=== PATIENT | female | born 1950 | race Hispanic/Latino ===

== ENCOUNTER 2022-03-20 15:10 | Inpatient (IN) | payer MEDICARE ==
[~2022-03-20] VITALS: Ht 157.5 cm; Wt 63.5 kg
[2022-03-20] MEDS ORDERED: CLONIDINE HCL 0.2 MG TAB PO ONE (15:30)
[2022-03-20] MEDS ORDERED: CLONIDINE HCL 0.1 MG TAB ONE (15:46)
[2022-03-20] MEDS ORDERED: ACETAMINOPHEN 325 MG TAB PO ONE (16:30)
[2022-03-20] MEDS ORDERED: NITROGLYCERIN 2% OINT 1 GM PKT TOP ONE (16:30)
[2022-03-20] MEDS ORDERED: FUROSEMIDE INJ 10 MG/ML 4 ML VIAL IV ONE (16:30)
[2022-03-20] MEDS ORDERED: FUROSEMIDE INJ 10 MG/ML 4 ML VIAL ONE (16:42)
[2022-03-20] MEDS ORDERED: ACETAMINOPHEN 325 MG TAB ONE (16:42)
[2022-03-20] MEDS ORDERED: DEXTROSE 50% SYRINGE 50 ML IV PRN (17:00)
[2022-03-20] MEDS: FAMOTIDINE 20 MG TAB PO SCH (17:00)
[2022-03-20] MEDS ORDERED: ENOXAPARIN SODIUM INJ 100 MG/ML SYR SC ONE ×2 (17:00→17:17)
[2022-03-20] MEDS ORDERED: SODIUM CHLORIDE FLUSH 10 ML SYR INJ PRN (17:00)
[2022-03-20] MEDS ORDERED: INSULIN REGULAR, HUMAN 100 UNIT/1 ML IV ONE (17:00)
[2022-03-20] MEDS: ASPIRIN 325 MG TAB PO SCH (17:06)
[2022-03-20] MEDS ORDERED: ASPIRIN 81 MG CHEW TAB ONE (18:42)
[2022-03-20] MEDS: INSULIN REGULAR, HUMAN 100 UNIT/1 ML SQ SCH (21:00)
[2022-03-20 21:43] VITALS: BP 154/55
[2022-03-20 21:45] VITALS: BP 154/55
[2022-03-20] MEDS: NITROGLYCERIN 2% OINT 1 GM PKT TOP SCH ×2 (21:45→23:08)
[2022-03-21] VITALS (7 sets, daily range): BP systolic 108–217; BP diastolic 58–93
[2022-03-21] MEDS: FAMOTIDINE 20 MG TAB PO SCH ×2 (05:18→17:07)
[2022-03-21] MEDS: NITROGLYCERIN 2% OINT 1 GM PKT TOP SCH ×3 (05:19→17:07)
[2022-03-21] MEDS ORDERED: CLONIDINE HCL 0.1 MG TAB PO ONE (06:00)
[2022-03-21] MEDS: ACETAMINOPHEN 325 MG TAB PO PRN ×2 (06:02→21:31)
[2022-03-21] MEDS: CLONIDINE HCL 0.1 MG TAB PO PRN ×2 (06:02→21:15)
[2022-03-21 06:45] LABS: BASOPHILS % 0.4 % (0.0-1.0); EOSINOPHILS # (AUTO) 0.1 (0.0-0.4); EOSINOPHILS % 1.5 % (0.0-6.0); HEMATOCRIT 26.1 % (34.2-44.1); HEMOGLOBIN 8.5 g/dL (12.0-16.0); LYMPHOCYTES # (AUTO) 0.5 (1.0-3.2); MEAN CORPUSCULAR HEMOGLOBIN 30.5 pg (28-32); MEAN CORPUSCULAR HGB CONC 32.6 g/dL (31-35); MEAN CORPUSCULAR VOLUME 93.5 fL (81-99); MONOCYTES # (AUTO) 0.4 (0.2-0.8); MONOCYTES % 6.9 % (4.4-11.3); NEUTROPHILS # (AUTO) 4.2 (2.1-6.9); NEUTROPHILS % 80.6 % (38.7-80.0); RED BLOOD COUNT 2.79 x10e6/uL (3.6-5.1); RED CELL DISTRIBUTION WIDTH 13.1 % (11.7-14.4)
[2022-03-21 06:59] LABS: PLATELET COUNT 95 x10e3/uL (140-360)
[2022-03-21 07:17] LABS: ANION GAP 15.9 mmol/L (8-16); CHOL/HDL RATIO 5.3 (3.0-3.6); CREATININE, SERUM 3.04 mg/dL (0.57-1.11); PHOSPHORUS 4.1 MG/DL (2.3-4.7); POTASSIUM 4.9 mmol/L (3.5-5.1)
[2022-03-21 07:27] LABS: CREATINE KINASE MB 1.9 ng/mL (0-5.0)
[2022-03-21] MEDS: INSULIN REGULAR, HUMAN 100 UNIT/1 ML SQ SCH ×5 (07:30→21:45)
[2022-03-21] MEDS: ASPIRIN 325 MG TAB PO SCH (09:57)
[2022-03-21] MEDS ORDERED: FUROSEMIDE INJ 10 MG/ML 4 ML VIAL IV ONE (11:30)
[2022-03-21] MEDS: GUAIFENESIN 200 MG/10 ML UDC PO PRN ×2 (14:00→21:31)
[2022-03-21 14:38] LABS: CREATINE KINASE MB 2.2 ng/mL (0-5.0)
[2022-03-21] MEDS: HYDRALAZINE HCL 25 MG TAB PO SCH ×2 (15:50→21:16)
[2022-03-21] MEDS: ATORVASTATIN 20 MG TAB PO SCH (21:16)
[2022-03-22] VITALS (7 sets, daily range): BP systolic 152–215; BP diastolic 54–88
[2022-03-22] MEDS: FAMOTIDINE 20 MG TAB PO SCH ×2 (05:10→17:21)
[2022-03-22] MEDS: GUAIFENESIN 200 MG/10 ML UDC PO PRN ×3 (05:11→21:30)
[2022-03-22] MEDS: NITROGLYCERIN 2% OINT 1 GM PKT TOP SCH ×4 (05:11→20:10)
[2022-03-22] MEDS: CLONIDINE HCL 0.1 MG TAB PO PRN (05:11)
[2022-03-22 05:42] LABS: BASOPHILS % 0.2 % (0.0-1.0); EOSINOPHILS % 0.9 % (0.0-6.0); HEMATOCRIT 28.2 % (34.2-44.1); HEMOGLOBIN 9.1 g/dL (12.0-16.0); LYMPHOCYTES # (AUTO) 0.7 (1.0-3.2); LYMPHOCYTES % 15.3 % (18.0-39.1); MEAN CORPUSCULAR HEMOGLOBIN 30.2 pg (28-32); MEAN CORPUSCULAR HGB CONC 32.3 g/dL (31-35); MEAN CORPUSCULAR VOLUME 93.7 fL (81-99); MONOCYTES # (AUTO) 0.5 (0.2-0.8); MONOCYTES % 10.5 % (4.4-11.3); NEUTROPHILS # (AUTO) 3.3 (2.1-6.9); NEUTROPHILS % 72.7 % (38.7-80.0); PLATELET COUNT 101 x10e3/uL (140-360); RED BLOOD COUNT 3.01 x10e6/uL (3.6-5.1); RED CELL DISTRIBUTION WIDTH 13.2 % (11.7-14.4)
[2022-03-22 06:19] LABS: ALBUMIN 3.2 g/dL (3.5-5.0); ANION GAP 18.8 mmol/L (8-16); CALCIUM 9.3 mg/dL (8.4-10.2); CREATININE, SERUM 3.37 mg/dL (0.57-1.11); MAGNESIUM 1.8 MG/DL (1.3-2.1); POTASSIUM 4.8 mmol/L (3.5-5.1)
[2022-03-22] MEDS: INSULIN REGULAR, HUMAN 100 UNIT/1 ML SQ SCH ×4 (08:17→20:11)
[2022-03-22] MEDS: ASPIRIN 325 MG TAB PO SCH (08:49)
[2022-03-22] MEDS: METOPROLOL SUCCINATE 50 MG TAB XL PO SCH (08:49)
[2022-03-22] MEDS: HYDRALAZINE HCL 25 MG TAB PO SCH ×3 (08:49→20:10)
[2022-03-22] MEDS: ACETAMINOPHEN 325 MG TAB PO PRN (08:54)
[2022-03-22] MEDS: SODIUM BICARBONATE 650 MG TAB PO SCH ×2 (12:27→17:21)
[2022-03-22] MEDS ORDERED: SODIUM CHLORIDE 0.9% 250ML 250 ML ONE (12:43)
[2022-03-22] MEDS: FUROSEMIDE INJ 10 MG/ML 4 ML VIAL IV SCH ×2 (15:28→20:12)
[2022-03-22 18:28] LABS: CLARITY,URINE SL CLOUDY (CLEAR); COLOR,URINE YELLOW (YELLOW); KETONES,URINE NEGATIVE (NEGATIVE); LEUKOCYTE ESTERASE ,URINE NEGATIVE (NEGATIVE); NITRITE,URINE NEGATIVE (NEGATIVE); PROTEIN,URINE DIPSTICK >=300 (NEGATIVE); URINE UROBILINOGEN 0.2 mg/dL (0.2 - 1)
[2022-03-22 18:43] LABS: BACTERIA,URINE MODERATE /HPF; EPITHELIAL CELLS,URINE FEW /LPF; RBC,URINE 0-5 /HPF (0-5); WBC,URINE (MAN) 0-5 /HPF (0-5)
[2022-03-22 18:56] LABS: CREATININE,URINE RANDOM 78.22 mg/dL (47-110)
[2022-03-22 18:58] LABS: TOTAL PROTEIN, URINE 243.2 mg/dL (1-14)
[2022-03-22] MEDS: ATORVASTATIN 20 MG TAB PO SCH (20:10)
[2022-03-23] VITALS (7 sets, daily range): BP systolic 110–181; BP diastolic 50–64
[2022-03-23] MEDS: NITROGLYCERIN 2% OINT 1 GM PKT TOP SCH ×3 (00:18→11:52)
[2022-03-23] MEDS: CLONIDINE HCL 0.1 MG TAB PO PRN ×3 (00:18→20:44)
[2022-03-23] MEDS: FAMOTIDINE 20 MG TAB PO SCH ×2 (05:02→16:42)
[2022-03-23] MEDS: GUAIFENESIN 200 MG/10 ML UDC PO PRN ×2 (05:03→11:15)
[2022-03-23] MEDS: FUROSEMIDE INJ 10 MG/ML 4 ML VIAL IV SCH ×2 (05:08→13:56)
[2022-03-23 06:48] LABS: ALBUMIN/GLOBULIN RATIO 1.2 (0.8-2.0); ANION GAP 19.5 mmol/L (8-16); CALCIUM 8.8 mg/dL (8.4-10.2); CREATININE, SERUM 4.34 mg/dL (0.57-1.11); POTASSIUM 4.5 mmol/L (3.5-5.1)
[2022-03-23] MEDS: INSULIN REGULAR, HUMAN 100 UNIT/1 ML SQ SCH ×4 (08:20→21:25)
[2022-03-23] MEDS: ASPIRIN 325 MG TAB PO SCH (08:34)
[2022-03-23] MEDS: SODIUM BICARBONATE 650 MG TAB PO SCH ×2 (08:34→16:42)
[2022-03-23] MEDS: HYDRALAZINE HCL 25 MG TAB PO SCH ×3 (08:35→20:43)
[2022-03-23] MEDS: METOPROLOL SUCCINATE 50 MG TAB XL PO SCH (08:36)
[2022-03-23] MEDS: ATORVASTATIN 20 MG TAB PO SCH (20:43)
[2022-03-24] VITALS (7 sets, daily range): BP systolic 124–189; BP diastolic 53–83
[2022-03-24] MEDS: CLONIDINE HCL 0.1 MG TAB PO PRN ×2 (00:07→06:12)
[2022-03-24 05:47] LABS: BASOPHILS % 0.3 % (0.0-1.0); EOSINOPHILS # (AUTO) 0.1 (0.0-0.4); EOSINOPHILS % 2.8 % (0.0-6.0); HEMATOCRIT 25.7 % (34.2-44.1); HEMOGLOBIN 8.4 g/dL (12.0-16.0); LYMPHOCYTES # (AUTO) 0.9 (1.0-3.2); LYMPHOCYTES % 28.9 % (18.0-39.1); MEAN CORPUSCULAR HEMOGLOBIN 30.3 pg (28-32); MEAN CORPUSCULAR HGB CONC 32.7 g/dL (31-35); MEAN CORPUSCULAR VOLUME 92.8 fL (81-99); MONOCYTES # (AUTO) 0.3 (0.2-0.8); MONOCYTES % 10.2 % (4.4-11.3); NEUTROPHILS # (AUTO) 1.9 (2.1-6.9); NEUTROPHILS % 57.5 % (38.7-80.0); PLATELET COUNT 93 x10e3/uL (140-360); RED BLOOD COUNT 2.77 x10e6/uL (3.6-5.1); RED CELL DISTRIBUTION WIDTH 12.8 % (11.7-14.4)
[2022-03-24 05:54] LABS: ANION GAP 21.5 mmol/L (8-16); CALCIUM 8.7 mg/dL (8.4-10.2); CREATININE, SERUM 4.48 mg/dL (0.57-1.11); POTASSIUM 4.5 mmol/L (3.5-5.1)
[2022-03-24] MEDS: GUAIFENESIN 200 MG/10 ML UDC PO PRN ×2 (06:12→17:17)
[2022-03-24] MEDS: FAMOTIDINE 20 MG TAB PO SCH ×2 (06:12→17:10)
[2022-03-24] MEDS: INSULIN REGULAR, HUMAN 100 UNIT/1 ML SQ SCH ×4 (07:54→20:48)
[2022-03-24] MEDS ORDERED: FUROSEMIDE INJ 10 MG/ML 4 ML VIAL IV SCH (09:00)
[2022-03-24] MEDS: SODIUM BICARBONATE 650 MG TAB PO SCH ×2 (09:08→17:09)
[2022-03-24] MEDS: ASPIRIN 325 MG TAB PO SCH (09:09)
[2022-03-24] MEDS: HYDRALAZINE HCL 25 MG TAB PO SCH ×3 (09:11→20:48)
[2022-03-24] MEDS: METOPROLOL SUCCINATE 50 MG TAB XL PO SCH (09:12)
[2022-03-24] MEDS: ATORVASTATIN 20 MG TAB PO SCH (20:47)
[2022-03-25] MEDS: GUAIFENESIN 200 MG/10 ML UDC PO PRN ×2 (00:24→04:31)
[2022-03-25] MEDS: ACETAMINOPHEN 325 MG TAB PO PRN (00:24)
[2022-03-25] MEDS: CLONIDINE HCL 0.1 MG TAB PO PRN ×2 (00:24→04:31)
[2022-03-25 01:14] VITALS: BP 171/51
[2022-03-25] MEDS: FAMOTIDINE 20 MG TAB PO SCH (04:30)
[2022-03-25 05:43] LABS: BASOPHILS % 0.2 % (0.0-1.0); EOSINOPHILS # (AUTO) 0.1 (0.0-0.4); EOSINOPHILS % 2.2 % (0.0-6.0); HEMOGLOBIN 8.4 g/dL (12.0-16.0); LYMPHOCYTES # (AUTO) 1.3 (1.0-3.2); LYMPHOCYTES % 30.4 % (18.0-39.1); MEAN CORPUSCULAR HEMOGLOBIN 29.5 pg (28-32); MEAN CORPUSCULAR HGB CONC 32.3 g/dL (31-35); MEAN CORPUSCULAR VOLUME 91.2 fL (81-99); MONOCYTES # (AUTO) 0.3 (0.2-0.8); MONOCYTES % 7.8 % (4.4-11.3); NEUTROPHILS # (AUTO) 2.4 (2.1-6.9); NEUTROPHILS % 59.2 % (38.7-80.0); PLATELET COUNT 94 x10e3/uL (140-360); RED BLOOD COUNT 2.85 x10e6/uL (3.6-5.1); RED CELL DISTRIBUTION WIDTH 12.7 % (11.7-14.4)
[2022-03-25 05:44] VITALS: BP 182/50
[2022-03-25 05:55] LABS: ALBUMIN 2.8 g/dL (3.5-5.0); ALBUMIN/GLOBULIN RATIO 0.9 (0.8-2.0); ANION GAP 20.2 mmol/L (8-16); CALCIUM 8.4 mg/dL (8.4-10.2); CREATININE, SERUM 4.27 mg/dL (0.57-1.11); POTASSIUM 4.2 mmol/L (3.5-5.1)
[2022-03-25] MEDS: INSULIN REGULAR, HUMAN 100 UNIT/1 ML SQ SCH ×2 (07:30→11:30)
[2022-03-25 08:02] VITALS: BP 176/57
[2022-03-25 08:45] VITALS: BP 176/57
[2022-03-25] MEDS: ASPIRIN 325 MG TAB PO SCH (08:56)
[2022-03-25] MEDS: METOPROLOL SUCCINATE 50 MG TAB XL PO SCH (08:56)
[2022-03-25] MEDS: HYDRALAZINE HCL 25 MG TAB PO SCH (08:56)
[2022-03-25] MEDS: SODIUM BICARBONATE 650 MG TAB PO SCH (08:57)
[2022-03-25] MEDS ORDERED: FUROSEMIDE 40 MG TAB PO SCH (09:00)
[2022-03-25] MEDS ORDERED: FUROSEMIDE40 MG PO (10:56)
[2022-03-25] MEDS ORDERED: HUMULIN R100 UNIT/2 SQ (10:56)
[2022-03-25] MEDS ORDERED: SODIUM BICARBO650 MG PO (10:56)
[2022-03-25] MEDS ORDERED: LIPITOR20 MG PO (10:56)
[2022-03-25] MEDS ORDERED: CLONIDINE HCL0.1 MG PO (10:56)
[2022-03-25] MEDS ORDERED: HYDRALAZINE HCL25 MG PO (10:56)
[2022-03-25] MEDS ORDERED: CEFUROXIME250 MG PO (10:56)
[2022-03-25] MEDS ORDERED: ASPIRIN325 MG PO (10:56)
[2022-03-25] MEDS ORDERED: GUAIFENESI100 MG/5 M PO (10:56)
[2022-03-25] MEDS ORDERED: ACETAMINOPHEN325 M1 PO (10:56)
[2022-03-25] MEDS ORDERED: TOPROL XL50 MG PO (10:56)
[2022-03-25] MEDS ORDERED: CATAPRES-TTS 11 EACH TD (11:04)
[2022-03-25 11:42] VITALS: BP 136/53
== END 2022-03-25 12:40 | disposition home or self-care (01) | DRG 280 ==
LOC: FSED 15:18 → ERHOLD 16:58 → MED/SURG2 19:52
PROVIDERS: ADMIT Internal Medicine; ATTEND Internal Medicine
DX: I13.0 Hypertensive heart and chronic kidney disease with heart failure and stage 1 through stage 4 chronic kidney disease, or unspecified chronic kidney disease (principal); I50.31 Acute diastolic (congestive) heart failure; I21.A1 Myocardial infarction type 2; J18.9 Pneumonia, unspecified organism; I16.1 Hypertensive emergency; N17.9 Acute kidney failure, unspecified; N18.4 Chronic kidney disease, stage 4 (severe); J81.1 Chronic pulmonary edema; E87.20 Acidosis, unspecified; E11.22 Type 2 diabetes mellitus with diabetic chronic kidney disease; I08.1 Rheumatic disorders of both mitral and tricuspid valves; E78.5 Hyperlipidemia, unspecified; I25.10 Atherosclerotic heart disease of native coronary artery without angina pectoris; E11.65 Type 2 diabetes mellitus with hyperglycemia; I45.10 Unspecified right bundle-branch block; J06.9 Acute upper respiratory infection, unspecified; Z95.1 Presence of aortocoronary bypass graft; Z95.5 Presence of coronary angioplasty implant and graft; Z79.82 Long term (current) use of aspirin; Z79.899 Other long term (current) drug therapy; Z82.49 Family history of ischemic heart disease and other diseases of the circulatory system; Z79.01 Long term (current) use of anticoagulants; Z79.84 Long term (current) use of oral hypoglycemic drugs; Z79.4 Long term (current) use of insulin
CPT/HCPCS: 0223U; 36415; 71045; 71046; 76770; 80048; 80053; 80061; 81001; 82550; 82553; 82570; 82575; 82948; 83735; 84100; 84156; 84484; 85025; 93005; 93306; 99284; J0456; J0696; J1650; J1940; J7050

== ENCOUNTER 2022-07-04 11:06 | Emergency (ER) | payer MEDICARE, OTHER ==
[~2022-07-04] VITALS: Ht 152.4 cm; Wt 59.0 kg
[~2022-07-04 11:06] MED LIST: ACETAMINOPHEN325 M1 PO; ASPIRIN325 MG PO; CATAPRES-TTS 11 EACH TD; CEFUROXIME250 MG PO; CLONIDINE HCL0.1 MG PO; FUROSEMIDE40 MG PO; GUAIFENESI100 MG/5 M PO; HUMULIN R100 UNIT/2 SQ; HYDRALAZINE HCL25 MG PO; LIPITOR20 MG PO; SODIUM BICARBO650 MG PO; TOPROL XL50 MG PO
[2022-07-04] MEDS ORDERED: CLONIDINE HCL 0.2 MG TAB PO ONE (12:00)
[2022-07-04] MEDS ORDERED: HYDRALAZINE HCL 20 MG/ML VIAL IV ONE (12:00)
[2022-07-04] MEDS ORDERED: HYDRALAZINE HCL 20 MG/ML VIAL ONE (12:33)
[2022-07-04] MEDS ORDERED: CLONIDINE HCL 0.1 MG TAB ONE (12:33)
[2022-07-04] MEDS ORDERED: CLONIDINE HCL 0.1 MG TAB PO ONE (12:45)
[2022-07-04] MEDS ORDERED: AMLODIPINE BESYL5 MG PO (13:17)
[2022-07-04] MEDS ORDERED: GABAPENTIN300 MG PO (13:17)
== END 2022-07-04 13:29 | disposition home or self-care (01) ==
LOC: FSED 11:22
DX: I16.0 Hypertensive urgency (principal); N17.9 Acute kidney failure, unspecified; E11.40 Type 2 diabetes mellitus with diabetic neuropathy, unspecified; E11.65 Type 2 diabetes mellitus with hyperglycemia; E78.5 Hyperlipidemia, unspecified; R94.31 Abnormal electrocardiogram [ECG] [EKG]; Z95.1 Presence of aortocoronary bypass graft
CPT/HCPCS: 80053; 82553; 84484; 85025; 93005; 99284; J0360

== ENCOUNTER 2024-03-28 15:57 | Emergency (ER) | payer MEDICARE ==
[~2024-03-28 15:57] MED LIST changes: +ALBUTEROL2.5 MG/3 M IH; +ALTOPREV40 MG PO; +AMLODIPINE BESYL5 MG PO; +ASPIRIN81 MG PO; +CLOPIDOGREL75 MG PO; +GABAPENTIN300 MG PO; +GLIPIZIDE5 MG PO; +HYDRALAZINE HCL50 MG PO; +LASIX40 MG PO; +MELATONIN3 MG PO; +METOPROLOL SUCC50 MG PO; +NIFEDIPINE ER30 M1 PO; +PRECOSE50 MG PO; +ZESTRIL40 MG PO
[2024-03-28 16:03] VITALS: PULSE 83; RESP 16; TEMP 97.9; O2SAT 98
== END 2024-03-28 18:07 | disposition other institution (70) ==
LOC: FSED 16:02
DX: M79.602 Pain in left arm (principal); R20.0 Anesthesia of skin; L03.114 Cellulitis of left upper limb; I12.9 Hypertensive chronic kidney disease with stage 1 through stage 4 chronic kidney disease, or unspecified chronic kidney disease; E11.22 Type 2 diabetes mellitus with diabetic chronic kidney disease; E11.65 Type 2 diabetes mellitus with hyperglycemia; N18.9 Chronic kidney disease, unspecified; Z99.2 Dependence on renal dialysis; I50.9 Heart failure, unspecified; E78.5 Hyperlipidemia, unspecified; M81.0 Age-related osteoporosis without current pathological fracture; I25.2 Old myocardial infarction; Z95.1 Presence of aortocoronary bypass graft
CPT/HCPCS: 99283; J0696

== ENCOUNTER 2024-05-16 10:22 | Emergency (ER) | payer MEDICARE ==
[2024-05-16 10:25] VITALS: PULSE 71; RESP 16; TEMP 98; O2SAT 97
[2024-05-16] MEDS ORDERED: DOXYCYCLINE HY100 MG PO (10:46)
[2024-05-16] MEDS ORDERED: PROBIOTIC & AC1 EACH PO (10:46)
== END 2024-05-16 11:15 | disposition home or self-care (01) ==
LOC: FSED 10:26
DX: L03.012 Cellulitis of left finger (principal); I12.9 Hypertensive chronic kidney disease with stage 1 through stage 4 chronic kidney disease, or unspecified chronic kidney disease; E11.22 Type 2 diabetes mellitus with diabetic chronic kidney disease; N18.9 Chronic kidney disease, unspecified; I50.9 Heart failure, unspecified; E78.5 Hyperlipidemia, unspecified; I25.2 Old myocardial infarction; Z95.1 Presence of aortocoronary bypass graft
CPT/HCPCS: 99284

== ENCOUNTER 2024-05-20 11:35 | Observation (INO) | payer MEDICARE, OTHER ==
[~2024-05-20] VITALS: Ht 157.5 cm; Wt 46.3 kg
[~2024-05-20 11:35] MED LIST changes: +DOXYCYCLINE HY100 MG PO; +PROBIOTIC & AC1 EACH PO
[2024-05-20 11:40] VITALS: TEMP 98.3
[2024-05-20] MEDS: ALBUTEROL SULF 0.083% NEB SOLN 3 ML NEB NEB STA (13:34)
[2024-05-20 15:22] LABS: BASOPHILS % 0.5 % (0.0-1.0); EOSINOPHILS # (AUTO) 0.1 (0.0-0.4); EOSINOPHILS % 1.4 % (0.0-6.0); HEMATOCRIT 25.8 % (34.2-44.1); HEMOGLOBIN 8.9 g/dL (12.0-16.0); LYMPHOCYTES # (AUTO) 1.7 (1.0-3.2); LYMPHOCYTES % 39.6 % (18.0-39.1); MEAN CORPUSCULAR HGB CONC 34.5 g/dL (31-35); MEAN CORPUSCULAR VOLUME 95.6 fL (81-99); MONOCYTES # (AUTO) 0.5 (0.2-0.8); MONOCYTES % 10.6 % (4.4-11.3); NEUTROPHILS # (AUTO) 2.1 (2.1-6.9); NEUTROPHILS % 47.7 % (38.7-80.0); PLATELET COUNT 120 x10e3/uL (140-360); RED CELL DISTRIBUTION WIDTH 12.8 % (11.7-14.4); WHITE BLOOD COUNT 4.34 x10e3/uL (4.8-10.8)
[2024-05-20] MEDS ORDERED: SODIUM CHLORIDE 0.9% 1000ML 2,000 ML IV PRN (16:00)
[2024-05-20 19:55] VITALS: PULSE 93; RESP 20
[2024-05-20] MEDS ORDERED: ONDANSETRON HCL INJ 2MG/ML 2ML 2 MG/ML VIAL ONE (20:07)
[2024-05-20] MEDS ORDERED: ONDANSETRON HCL INJ 2MG/ML 2ML 2 MG/ML VIAL IV PRN (20:30)
[2024-05-20] MEDS: Morphine 2mg Syringe 2 MG/ML SYR IV PRN (20:31)
[2024-05-20] MEDS: ONDANSETRON HCL INJ 2MG/ML 2ML 2 MG/ML VIAL IV STA (20:33)
[2024-05-20 21:25] VITALS: BP 149/62; PULSE 98; RESP 18; TEMP 97.9; O2SAT 98
[2024-05-20 21:33] VITALS: BP 149/62; PULSE 98; RESP 18; TEMP 97.9; O2SAT 98
[2024-05-20] MEDS ORDERED: INSULIN LI100 UNIT/2 SQ (21:44)
[2024-05-20] MEDS ORDERED: VELPHORO500 MG PO (21:44)
[2024-05-20] MEDS ORDERED: LISINOPRIL40 MG PO (21:44)
[2024-05-20] MEDS ORDERED: BASAGLAR K100 UNIT/1 SC (21:44)
[2024-05-20] MEDS ORDERED: NIFEDIPINE ER90 M1 PO (21:44)
[2024-05-20] MEDS ORDERED: LOVASTATIN40 MG PO (21:44)
[2024-05-20] MEDS ORDERED: CEPHALEXIN500 MG PO (21:44)
[2024-05-20] MEDS ORDERED: DOXYCYCLINE HY100 MG PO (21:44)
[2024-05-20] MEDS ORDERED: ACARBOSE50 MG PO (21:44)
[2024-05-20 23:57] VITALS: BP 122/64; PULSE 94; RESP 18; TEMP 98.7; O2SAT 100
[2024-05-21] VITALS (7 sets, daily range): BP systolic 114–161; BP diastolic 50–84; PULSE 63–100; RESP 14–19; TEMP 97.3–98; O2SAT 98–100
[2024-05-21 05:40] LABS: BASOPHILS % 0.5 % (0.0-1.0); EOSINOPHILS # (AUTO) 0.1 (0.0-0.4); EOSINOPHILS % 1.3 % (0.0-6.0); HEMATOCRIT 26.6 % (34.2-44.1); HEMOGLOBIN 8.9 g/dL (12.0-16.0); LYMPHOCYTES # (AUTO) 1.2 (1.0-3.2); LYMPHOCYTES % 31.5 % (18.0-39.1); MEAN CORPUSCULAR HEMOGLOBIN 33.1 pg (28-32); MEAN CORPUSCULAR HGB CONC 33.5 g/dL (31-35); MEAN CORPUSCULAR VOLUME 98.9 fL (81-99); MONOCYTES # (AUTO) 0.4 (0.2-0.8); MONOCYTES % 10.7 % (4.4-11.3); NEUTROPHILS # (AUTO) 2.2 (2.1-6.9); NEUTROPHILS % 55.7 % (38.7-80.0); PLATELET COUNT 118 x10e3/uL (140-360); RED BLOOD COUNT 2.69 x10e6/uL (3.6-5.1); RED CELL DISTRIBUTION WIDTH 12.8 % (11.7-14.4); WHITE BLOOD COUNT 3.91 x10e3/uL (4.8-10.8)
[2024-05-21 06:04] LABS: ANION GAP 17.1 mmol/L (8-16); CALCIUM 9.3 mg/dL (8.4-10.2); CREATININE, SERUM 3.47 mg/dL (0.57-1.11); POTASSIUM 4.1 mmol/L (3.5-5.1)
[2024-05-21] MEDS ORDERED: ALBUTEROL SULF 0.083% NEB SOLN 3 ML NEB NEB PRN (07:15)
[2024-05-21] MEDS: GLIPIZIDE 5 MG TAB PO SCH (07:30)
[2024-05-21] MEDS: HYDRALAZINE HCL 25 MG TAB PO SCH (09:00)
[2024-05-21] MEDS: IRON-VITAMIN-MINERAL CAPSULE PO SCH (09:00)
[2024-05-21] MEDS ORDERED: AMLODIPINE BESYLATE 5 MG TAB PO SCH (09:00)
[2024-05-21] MEDS: SODIUM BICARBONATE 650 MG TAB PO SCH (09:00)
[2024-05-21] MEDS: LISINOPRIL 20 MG TAB PO SCH (09:00)
[2024-05-21] MEDS: CLOPIDOGREL BISULFATE 75 MG TAB PO SCH (09:00)
[2024-05-21] MEDS: METOPROLOL SUCCINATE 50 MG TAB XL PO SCH (09:00)
[2024-05-21] MEDS ORDERED: NIFEDIPINE CR 30 MG TAB PO SCH (09:00)
[2024-05-21] MEDS: NIFEDIPINE CR 30 MG TAB PO SCH (09:00)
[2024-05-21] MEDS: ASPIRIN 81 MG CHEW TAB PO SCH (09:00)
[2024-05-21] MEDS: GABAPENTIN 300 MG CAP PO SCH ×2 (09:00→12:45)
[2024-05-21] MEDS: FUROSEMIDE INJ 10 MG/ML 4 ML VIAL IV SCH (09:00)
[2024-05-21] MEDS ORDERED: ACETAMINOPHEN 325 MG TAB PO PRN (11:00)
[2024-05-21] MEDS: ATORVASTATIN 40 MG TAB PO SCH (22:33)
[2024-05-21] MEDS: INSULIN GLARGINE 100 UNITS/ML VIAL SQ SCH (22:50)
[2024-05-22] VITALS: BP 115/47; PULSE 83; RESP 18; TEMP 98.7; O2SAT 100
[2024-05-22 04:00] VITALS: BP 114/48; PULSE 68; RESP 18; TEMP 96.1; O2SAT 100
[2024-05-22 08:01] VITALS: BP 119/48; PULSE 70; RESP 16; TEMP 97.6; O2SAT 100
[2024-05-22] MEDS: SODIUM CHLORIDE 0.9% 250ML 250 ML ONE (08:21)
[2024-05-22] MEDS ORDERED: AMLODIPINE BESYLATE 5 MG TAB PO SCH (09:00)
[2024-05-22] MEDS ORDERED: MINOXIDIL2.5 MG PO (09:36)
[2024-05-22 10:08] VITALS: BP 119/48; PULSE 70; RESP 16; TEMP 97.6; O2SAT 100
[2024-05-22] MEDS ORDERED: SODIUM BICARBO650 MG PO (12:02)
[2024-05-22] MEDS ORDERED: GABAPENTIN300 MG PO (12:04)
[2024-05-22] MEDS ORDERED: ASPIRIN CHEW81 MG PO (12:04)
== END 2024-05-22 13:18 | disposition home or self-care (01) ==
LOC: FSED 11:38 → ERHOLD 12:48 → MED/SURG 21:01
PROVIDERS: ADMIT Internal Medicine; ATTEND Internal Medicine
DX: E87.5 Hyperkalemia (principal); I13.2 Hypertensive heart and chronic kidney disease with heart failure and with stage 5 chronic kidney disease, or end stage renal disease; N18.6 End stage renal disease; E11.65 Type 2 diabetes mellitus with hyperglycemia; I50.9 Heart failure, unspecified; Z99.2 Dependence on renal dialysis; L03.012 Cellulitis of left finger; D63.1 Anemia in chronic kidney disease; N25.81 Secondary hyperparathyroidism of renal origin; E78.5 Hyperlipidemia, unspecified; M81.0 Age-related osteoporosis without current pathological fracture; Z95.1 Presence of aortocoronary bypass graft; Z95.5 Presence of coronary angioplasty implant and graft; D69.6 Thrombocytopenia, unspecified; M79.10 Myalgia, unspecified site; Z79.4 Long term (current) use of insulin
CPT/HCPCS: 36415 ×3; 71045; 80048; 80053; 81003; 82948 ×3; 83880; 85025 ×2; 90970; 99252; 99284; G0378 ×3; J0696 ×2; J1815; J1940; J2270; J2405; J7030; J7050

== ENCOUNTER 2024-09-26 20:08 | Inpatient (IN) | payer MEDICARE, OTHER ==
[~2024-09-26] VITALS: Ht 157.5 cm; Wt 49.4 kg
[~2024-09-26 20:08] MED LIST changes: +ACARBOSE50 MG PO; +AMOXICILLIN500 MG PO; +ASPIRIN CHEW81 MG PO; +BASAGLAR K100 UNIT/1 SC; +CEPHALEXIN500 MG PO; +INSULIN LI100 UNIT/2 SQ; +LISINOPRIL40 MG PO; +LOVASTATIN40 MG PO; +MECLIZINE HCL12.5 MG PO; +MINOXIDIL2.5 MG PO; +NIFEDIPINE ER90 M1 PO; +PERCOCET 5-3251 EACH PO; +VELPHORO500 MG PO
[2024-09-26 20:33] LABS: BASOPHILS % 0.4 % (0.0-1.0); EOSINOPHILS % 1.8 % (0.0-6.0); LYMPHOCYTES % 21.9 % (18.0-39.1); MONOCYTES % 10.7 % (4.4-11.3); NEUTROPHILS % 65.0 % (38.7-80.0); RED CELL DISTRIBUTION WIDTH 14.0 % (11.7-14.4)
[2024-09-26 20:51] LABS: CORONAVIRUS COVID-19 AG NEGATIVE (NEGATIVE)
[2024-09-26 20:56] LABS: EST GLOMERULAR FILTRATION RATE 7.0 ML/MIN (>=60)
[2024-09-26] MEDS ORDERED: SODIUM CHLORIDE FLUSH 10 ML SYR INJ PRN (21:45)
[2024-09-26] MEDS ORDERED: ONDANSETRON HCL INJ 2MG/ML 2ML 2 MG/ML VIAL IV PRN (21:45)
[2024-09-26 23:00] VITALS: PULSE 74; RESP 18; O2SAT 97
[2024-09-26 23:02] VITALS: PULSE 74; RESP 18; TEMP 99.4
[2024-09-26] MEDS: FUROSEMIDE INJ 10 MG/ML 4 ML VIAL IV SCH (23:07)
[2024-09-27] VITALS (12 sets, daily range): BP systolic 127–159; BP diastolic 55–99; PULSE 71–76; RESP 18–20; TEMP 97.6–98.6; O2SAT 87–100
[2024-09-27] MEDS ORDERED: FUROSEMIDE40 MG PO (00:55)
[2024-09-27] MEDS ORDERED: DOCUSATE SODIUM 100 MG CAP PO PRN (01:30)
[2024-09-27] MEDS ORDERED: HYDRALAZINE HCL 20 MG/ML VIAL IV PRN (01:30)
[2024-09-27] MEDS: MINOXIDIL 2.5 MG TAB PO SCH (01:30)
[2024-09-27] MEDS ORDERED: HYDROCODONE/APAP 5MG-325MG TAB PO PRN (01:30)
[2024-09-27] MEDS ORDERED: ACETAMINOPHEN 325 MG TAB PO PRN (01:30)
[2024-09-27] MEDS ORDERED: TRAMADOL HCL 50 MG TAB PO PRN (01:30)
[2024-09-27] MEDS ORDERED: MELATONIN 3 MG TAB PO PRN (01:30)
[2024-09-27] MEDS ORDERED: GUAIFENESIN/DEXTROMETHORPHAN LIQD 5 ML UDC PO PRN (01:30)
[2024-09-27] MEDS ORDERED: ALBUTEROL SULF 0.083% NEB SOLN 3 ML NEB NEB PRN (01:30)
[2024-09-27] MEDS: METOPROLOL SUCCINATE 50 MG TAB XL PO SCH (03:24)
[2024-09-27 05:43] LABS: BASOPHILS % 0.6 % (0.0-1.0); EOSINOPHILS % 1.7 % (0.0-6.0); LYMPHOCYTES % 21.7 % (18.0-39.1); MONOCYTES % 10.8 % (4.4-11.3); NEUTROPHILS % 64.8 % (38.7-80.0); RED CELL DISTRIBUTION WIDTH 13.8 % (11.7-14.4)
[2024-09-27 06:12] LABS: EST GLOMERULAR FILTRATION RATE 6.0 ML/MIN (>=60)
[2024-09-27] MEDS: LISINOPRIL 20 MG TAB PO SCH (09:00)
[2024-09-27] MEDS: FOLIC ACID/CYANOCOB/PYRIDOXINE TAB PO SCH (09:01)
[2024-09-27] MEDS: SODIUM BICARBONATE 650 MG TAB PO SCH (09:01)
[2024-09-27] MEDS: CLOPIDOGREL BISULFATE 75 MG TAB PO SCH (09:01)
[2024-09-27] MEDS: ASPIRIN 81 MG CHEW TAB PO SCH (09:01)
[2024-09-27] MEDS: INSULIN REGULAR, HUMAN 100 UNIT/1 ML SQ SCH (09:03)
[2024-09-27] MEDS: SODIUM CHLORIDE 0.9% 250ML 250 ML ONE (13:23)
[2024-09-27] MEDS: ALBUMIN 25% 12.5GM 0.25 GM/ML BTL IV PRN (20:08)
[2024-09-27] MEDS: SODIUM CHLORIDE 0.9% 1000ML 2,000 ML IV PRN (20:08)
[2024-09-27] MEDS: SIMVASTATIN 20 MG TAB PO SCH (21:00)
[2024-09-27] MEDS: GABAPENTIN 100 MG CAP PO SCH (21:00)
[2024-09-28] VITALS (10 sets, daily range): BP systolic 105–149; BP diastolic 46–80; PULSE 69–82; RESP 17–20; TEMP 96.3–98.6; O2SAT 95–100
[2024-09-29] VITALS (8 sets, daily range): BP systolic 99–135; BP diastolic 50–79; PULSE 63–105; RESP 18–19; TEMP 98–98.8; O2SAT 92–99
[2024-09-29 07:42] LABS: BASOPHILS % 0.7 % (0.0-1.0); EOSINOPHILS % 1.3 % (0.0-6.0); LYMPHOCYTES % 24.6 % (18.0-39.1); MONOCYTES % 11.8 % (4.4-11.3); NEUTROPHILS % 61.2 % (38.7-80.0); RED CELL DISTRIBUTION WIDTH 14.6 % (11.7-14.4)
[2024-09-29 08:13] LABS: EST GLOMERULAR FILTRATION RATE 7.0 ML/MIN (>=60)
[2024-09-29] MEDS ORDERED: ALBUMIN 25% 12.5GM 0.25 GM/ML BTL IV PRN (10:30)
[2024-09-29] MEDS ORDERED: SODIUM CHLORIDE 0.9% 1000ML 2,000 ML IV PRN (10:30)
[2024-09-29 13:39] LABS: INR 0.99
[2024-09-29] MEDS: HYDRALAZINE HCL 25 MG TAB PO SCH (15:00)
[2024-09-30] VITALS (9 sets, daily range): BP systolic 114–138; BP diastolic 43–65; PULSE 72–90; RESP 17–19; TEMP 98.1–98.8; O2SAT 92–100
[2024-09-30] MEDS: DEXTROSE 50% SYRINGE 50 ML IV PRN (00:50)
[2024-09-30] MEDS ORDERED: AUGMENTIN 500-1 EACH PO (18:03)
[2024-10-01 05:34] LABS: HEPATITIS B SURFACE AB QUANT 197.0 mIU/mL (Immunity>10); HEPATITIS B SURFACE AG (P) Negative (Negative)
== END 2024-09-30 18:56 | disposition home or self-care (01) | DRG 698 ==
LOC: ER 20:13 → ERHOLD 21:33 → MED/SURG 09-27 00:09
PROVIDERS: ADMIT Internal Medicine Critical Care Medicine; ATTEND Internal Medicine Critical Care Medicine
PROC: 5A1D70Z Performance of Urinary Filtration, Intermittent, Less than 6 Hours Per Day (ICD-10-PCS; principal; 2024-09-27)
DX: E11.22 Type 2 diabetes mellitus with diabetic chronic kidney disease (principal); J18.9 Pneumonia, unspecified organism; J96.21 Acute and chronic respiratory failure with hypoxia; I12.0 Hypertensive chronic kidney disease with stage 5 chronic kidney disease or end stage renal disease; E11.21 Type 2 diabetes mellitus with diabetic nephropathy; N18.6 End stage renal disease; I25.10 Atherosclerotic heart disease of native coronary artery without angina pectoris; G62.9 Polyneuropathy, unspecified; E21.3 Hyperparathyroidism, unspecified; D63.1 Anemia in chronic kidney disease; E11.319 Type 2 diabetes mellitus with unspecified diabetic retinopathy without macular edema; M81.0 Age-related osteoporosis without current pathological fracture; J40 Bronchitis, not specified as acute or chronic; E66.9 Obesity, unspecified; I27.81 Cor pulmonale (chronic); E78.5 Hyperlipidemia, unspecified; Z79.4 Long term (current) use of insulin; Z79.84 Long term (current) use of oral hypoglycemic drugs; Z99.2 Dependence on renal dialysis; I25.2 Old myocardial infarction; Z95.1 Presence of aortocoronary bypass graft; Z95.5 Presence of coronary angioplasty implant and graft; Z79.82 Long term (current) use of aspirin; Z79.891 Long term (current) use of opiate analgesic; Z79.02 Long term (current) use of antithrombotics/antiplatelets; Z11.52 Encounter for screening for COVID-19
CPT/HCPCS: 36415; 71045; 76604; 80048; 80053; 82550; 82948; 83690; 83880; 84484; 85025; 85610; 86706; 87340; 93005; 94799; 96372; 99284; J0696; J1938; J7030; J7050; J7799

== ENCOUNTER 2024-10-06 15:59 | Emergency (ER) | payer MEDICARE, OTHER ==
[~2024-10-06] VITALS: Ht 157.5 cm; Wt 49.4 kg
[~2024-10-06 15:59] MED LIST changes: +AUGMENTIN 500-1 EACH PO
[2024-10-06 16:04] VITALS: TEMP 98.5
[2024-10-06 16:39] LABS: BASOPHILS % 0.8 % (0.0-1.0); EOSINOPHILS % 2.4 % (0.0-6.0); LYMPHOCYTES % 22.0 % (18.0-39.1); MONOCYTES % 10.2 % (4.4-11.3); NEUTROPHILS % 64.3 % (38.7-80.0); RED CELL DISTRIBUTION WIDTH 14.7 % (11.7-14.4)
[2024-10-06] MEDS: SODIUM CHLORIDE 0.9% 500ML 500 ML IV ONE (17:02)
[2024-10-06 17:18] LABS: EST GLOMERULAR FILTRATION RATE 8.0 ML/MIN (>=60)
[2024-10-06] MEDS: CIPROFLOXACIN 500 MG TAB PO STA (18:06)
[2024-10-06 18:07] VITALS: PULSE 69; RESP 18; O2SAT 95
== END 2024-10-06 18:15 | disposition home or self-care (01) ==
LOC: ER 16:06
DX: R19.7 Diarrhea, unspecified (principal); R10.30 Lower abdominal pain, unspecified; I12.0 Hypertensive chronic kidney disease with stage 5 chronic kidney disease or end stage renal disease; E11.22 Type 2 diabetes mellitus with diabetic chronic kidney disease; E11.65 Type 2 diabetes mellitus with hyperglycemia; N18.6 End stage renal disease; Z99.2 Dependence on renal dialysis; E78.5 Hyperlipidemia, unspecified; M81.0 Age-related osteoporosis without current pathological fracture; R94.31 Abnormal electrocardiogram [ECG] [EKG]; I25.2 Old myocardial infarction; Z95.1 Presence of aortocoronary bypass graft
CPT/HCPCS: 36415; 74176; 80053; 83690; 84484; 85025; 93005; 99284; J7040

== ENCOUNTER 2024-10-29 09:19 | Inpatient (IN) | payer MEDICARE, OTHER ==
[~2024-10-29] VITALS: Ht 157.5 cm; Wt 49.4 kg
[2024-10-29 09:25] VITALS: TEMP 97.8
[2024-10-29] MEDS: ONDANSETRON HCL INJ 2MG/ML 2ML 2 MG/ML VIAL IV STA ×2 (11:13→13:12)
[2024-10-29 11:15] LABS: BASOPHILS % 0.0 % (0.0-1.0); EOSINOPHILS % 0.1 % (0.0-6.0); LYMPHOCYTES % 3.9 % (18.0-39.1); MONOCYTES % 4.6 % (4.4-11.3); NEUTROPHILS % 90.9 % (38.7-80.0); RED CELL DISTRIBUTION WIDTH 14.6 % (11.7-14.4)
[2024-10-29 11:34] LABS: INR 1.23
[2024-10-29 11:44] LABS: EST GLOMERULAR FILTRATION RATE 9.0 ML/MIN (>=60)
[2024-10-29] MEDS ORDERED: DEXTROSE 50% SYRINGE 50 ML IV PRN (12:30)
[2024-10-29] MEDS: ONDANSETRON HCL INJ 2MG/ML 2ML 2 MG/ML VIAL IV PRN (13:09)
[2024-10-29] MEDS: INSULIN REGULAR, HUMAN 100 UNIT/1 ML IV ONE (13:09)
[2024-10-29] MEDS: Morphine 4mg INJECTION 4 MG/ML INJ IV STA (13:10)
[2024-10-29] MEDS: ASPIRIN 81 MG CHEW TAB PO ONE (13:11)
[2024-10-29 13:41] VITALS: PULSE 92; RESP 16
[2024-10-29 14:05] VITALS: BP 148/72; PULSE 94; RESP 18; TEMP 98.2; O2SAT 98
[2024-10-29] MEDS: METOPROLOL SUCCINATE 50 MG TAB XL PO SCH (14:45)
[2024-10-29 15:00] VITALS: BP 148/72; PULSE 94; RESP 18; TEMP 98.2; O2SAT 98
[2024-10-29 16:02] LABS: CHOL/HDL RATIO 2.9 (3.0-3.6); LDL CHOLESTEROL 61.0 MG/DL (60-130)
[2024-10-29] MEDS: AMIODARONE HCL 200 MG TAB PO SCH (17:00)
[2024-10-29] MEDS: INSULIN LISPRO 100 UNIT/1 ML 3ML VIAL SQ SCH (17:03)
[2024-10-29 20:00] VITALS: BP 130/58; PULSE 84; RESP 17; TEMP 98.9; O2SAT 98
[2024-10-29] MEDS: ATORVASTATIN 20 MG TAB PO SCH (20:12)
[2024-10-29 21:00] VITALS: BP 130/58; PULSE 84; RESP 17; TEMP 98.9; O2SAT 98
[2024-10-30] VITALS (8 sets, daily range): BP systolic 132–148; BP diastolic 43–64; PULSE 69–83; RESP 16–18; TEMP 98.1–98.8; O2SAT 94–100
[2024-10-30 05:23] LABS: BASOPHILS % 0.1 % (0.0-1.0); EOSINOPHILS % 0.8 % (0.0-6.0); LYMPHOCYTES % 8.5 % (18.0-39.1); MONOCYTES % 8.2 % (4.4-11.3); NEUTROPHILS % 82.0 % (38.7-80.0); RED CELL DISTRIBUTION WIDTH 14.6 % (11.7-14.4)
[2024-10-30 05:51] LABS: EST GLOMERULAR FILTRATION RATE 20.0 ML/MIN (>=60)
[2024-10-30] MEDS: ASPIRIN 81 MG ENTERIC COATED PO SCH (08:42)
[2024-10-30] MEDS: CLOPIDOGREL BISULFATE 75 MG TAB PO SCH (08:42)
[2024-10-30] MEDS ORDERED: SODIUM CHLORIDE 0.9% 250ML 250 ML IV PRN (12:30)
[2024-10-30] MEDS ORDERED: SODIUM CHLORIDE 0.9% 1000ML 2,000 ML IV PRN (12:30)
[2024-10-30] MEDS ORDERED: ALBUMIN 25% 12.5GM 0.25 GM/ML BTL IV PRN (12:30)
[2024-10-31] VITALS: BP 116/55; PULSE 81; RESP 16; TEMP 99.1; O2SAT 100
[2024-10-31 04:00] VITALS: BP 133/69; PULSE 81; RESP 16; TEMP 99; O2SAT 100
[2024-10-31 08:36] VITALS: BP 136/70; PULSE 69; RESP 16; TEMP 98.8; O2SAT 100
[2024-10-31 08:41] VITALS: BP 136/70; PULSE 69; RESP 16; TEMP 98.8; O2SAT 100
[2024-10-31] MEDS ORDERED: METOPROLOL SUCC50 MG PO (12:07)
[2024-11-02 05:34] LABS: HEPATITIS B CORE AB TOTAL Negative; HEPATITIS B SURFACE AB QUANT 79.9; HEPATITIS B SURFACE AG (P) Negative
== END 2024-10-31 12:45 | disposition home or self-care (01) | DRG 291 ==
LOC: ER 09:34 → ERHOLD 12:30 → MED/SURG2 14:05 → MED/SURG 10-30 17:42
PROVIDERS: ADMIT Internal Medicine; ATTEND Internal Medicine
PROC: 5A1D70Z Performance of Urinary Filtration, Intermittent, Less than 6 Hours Per Day (ICD-10-PCS; principal; 2024-10-29)
DX: I13.2 Hypertensive heart and chronic kidney disease with heart failure and with stage 5 chronic kidney disease, or end stage renal disease (principal); I50.43 Acute on chronic combined systolic (congestive) and diastolic (congestive) heart failure; N18.6 End stage renal disease; R18.8 Other ascites; I24.89 Other forms of acute ischemic heart disease; E11.22 Type 2 diabetes mellitus with diabetic chronic kidney disease; E88.A Wasting disease (syndrome) due to underlying condition; E11.65 Type 2 diabetes mellitus with hyperglycemia; E78.5 Hyperlipidemia, unspecified; I25.10 Atherosclerotic heart disease of native coronary artery without angina pectoris; M81.0 Age-related osteoporosis without current pathological fracture; D63.1 Anemia in chronic kidney disease; K57.90 Diverticulosis of intestine, part unspecified, without perforation or abscess without bleeding; I48.0 Paroxysmal atrial fibrillation; I34.0 Nonrheumatic mitral (valve) insufficiency; R79.89 Other specified abnormal findings of blood chemistry; I27.81 Cor pulmonale (chronic); I27.20 Pulmonary hypertension, unspecified; Z79.4 Long term (current) use of insulin; Z99.2 Dependence on renal dialysis; Z79.84 Long term (current) use of oral hypoglycemic drugs; Z79.01 Long term (current) use of anticoagulants; Z79.891 Long term (current) use of opiate analgesic; Z98.61 Coronary angioplasty status; Z95.1 Presence of aortocoronary bypass graft; I25.2 Old myocardial infarction; Z79.82 Long term (current) use of aspirin; Z79.02 Long term (current) use of antithrombotics/antiplatelets; Z86.16 Personal history of COVID-19
CPT/HCPCS: 36415; 71045; 74176; 80053; 80061; 82550; 82948; 83036; 83690; 83735; 84484; 85025; 85610; 85730; 86704; 86706; 87340; 93005; 96372; 99284; J2270; J2405; J2470; J7030